=== PATIENT | male | born 1980 | race Hispanic/Latino ===

== ENCOUNTER 2024-10-05 10:38 | Emergency (ER) | payer OTHER ==
[~2024-10-05] VITALS: Ht 182.9 cm; Wt 106.2 kg
[2024-10-05] MEDS ORDERED: ATORVASTATIN CA20 MG PO (11:07)
[2024-10-05] MEDS ORDERED: JARDIANCE25 MG (11:07)
[2024-10-05] MEDS ORDERED: GLIPIZIDE5 MG PO (11:07)
[2024-10-05] MEDS ORDERED: INSULIN GL300 UNIT/1 (11:07)
[2024-10-05] MEDS ORDERED: OFLOXACIN5 ML OT (11:13)
[2024-10-05 11:23] VITALS: PULSE 72; RESP 16; TEMP 98.1; O2SAT 97
[2024-10-05] MEDS: FLUORESCEIN SOD(OPTH) 1 MG STRP OP ONE (11:25)
== END 2024-10-05 11:23 | disposition home or self-care (01) ==
LOC: FSED 10:47
DX: S05.02XA Injury of conjunctiva and corneal abrasion without foreign body, left eye, initial encounter (principal); X58.XXXA Exposure to other specified factors, initial encounter; Y92.89 Other specified places as the place of occurrence of the external cause; E11.9 Type 2 diabetes mellitus without complications; E78.5 Hyperlipidemia, unspecified
CPT/HCPCS: 99283